=== PATIENT | female | born 1955 | race Caucasian/White ===

== ENCOUNTER → 2017-05-28 | Outpatient (CLI) | payer BC ==
[~2017-05-28] MED LIST: LORA-741 PO; METO25TA56 PO
--- NOTE | 2017-05-28 16:02 | MAMMOGRAPHY REPORT ---
BILATERAL DIGITAL SCREENING MAMMOGRAM TOMOSYNTHESIS WITH CAD: 05/28/2017 CLINICAL HISTORY: Routine screening. Patient has no complaints. TECHNIQUE: Breast tomosynthesis in addition to standard 2D mammography was performed. Current study was also evaluated with a Computer Aided Detection (CAD) system. COMPARISON: Comparison is made to exams dated: 12/01/2014 mammogram, 12/01/2014 ultrasound - [facility], and 10/09/2009 mammogram. BREAST COMPOSITION: The tissue of both breasts is heterogeneously dense, which may obscure small mas ses. FINDINGS: No suspicious masses, calcifications, or areas of architectural distortion are noted in ei ther breast. There has been no significant interval change compared to prior exams. Scattered bilater al benign-appearing calcifications are not significantly changed. Benign oil cysts are again seen wi thin the left medial breast. IMPRESSION: ACR BI-RADS CATEGORY 2: BENIGN There is no mammographic evidence of malignancy. A 1 year screening mammogram is recommended. The pa tient will receive written notification of the results. Approximately 10% of breast cancers are not detected with mammography. A negative mammographic report should not delay biopsy if a clinically suggestive mass is present. Susan Ledesma M.D. /:05/28/2017 12:47:41 Sales Administration Specialist: Madiha Carcamo [facility] letter sent: Normal 1/2 BI-RADS Code: ACR BI-RADS Category 2: Benign
== END | disposition home or self-care (01) ==
LOC: C.MAMM 12:25
PROVIDERS: ATTEND Nurse Practitioner Family
DX: Z12.31 Encounter for screening mammogram for malignant neoplasm of breast (principal)

== ENCOUNTER → 2017-09-24 | Outpatient (CLI) | payer OTHER ==
--- NOTE | 2017-09-24 14:08 | DIAGNOSTIC IMAGING REPORT ---
KUB HISTORY: DORSALGIA, HEMATURIA COMPARISON: None. FINDINGS: The bowel gas pattern is unremarkable. There are no dilated loops of small bowel to suggest an obstruction. The renal shadows are not well visualized due to overlying bowel gas. No left renal calculi. Possible 4 mm stone within the lower pole of the left kidney. However, this could be within the overlying bowel contents. No ureteral calculi. Calcifications in the deep pelvis likely represent phleboliths. Similar-appearing small rectangular densities overlying the right side of the sacrum and within the left side of the pelvis favor tubal ligation clips. No pneumoperitoneum or pneumatosis. IMPRESSION: Possible right-sided nephrolithiasis. No ureteral calculi. Electronically signed by: Woo Romero M.D. 09/24/2017 2:07 PM Dictated Date/Time: 09/24/2017 2:04 PM
== END | disposition home or self-care (01) ==
LOC: C.RAD 13:43
PROVIDERS: ATTEND Nurse Practitioner Family
DX: M54.9 Dorsalgia, unspecified (principal); R31.9 Hematuria, unspecified

== ENCOUNTER → 2017-09-25 | Outpatient (CLI) | payer OTHER ==
--- NOTE | 2017-09-25 16:45 | DIAGNOSTIC IMAGING REPORT ---
RENAL ULTRASOUND CLINICAL HISTORY: HEMATURIA, POSSIBLE STONE SEEN ON KUB COMPARISON STUDY: KUB September 24, 2017. TECHNIQUE: Sonography of the kidneys and the urinary bladder was performed. FINDINGS: Both kidneys measure 9.3 cm in maximal dimension. No shadowing calculi or renal masses are identified. There is no right hydronephrosis. Slight prominence of the right renal pelvis suggests an extrarenal pelvis. There is mild left collecting system dilatation. Both ureteral jets were identified. Bladder is unremarkable by sonography. IMPRESSION: 1. Mild left collecting system dilatation. 2. No renal calculi identified although these may be occult by sonography. 3. Both ureteral jets identified. Electronically signed by: Abhi Almazan M.D. 09/25/2017 4:44 PM Dictated Date/Time: 09/25/2017 4:42 PM
== END | disposition home or self-care (01) ==
LOC: C.ULTR 15:49
PROVIDERS: ATTEND Nurse Practitioner Family
DX: R31.9 Hematuria, unspecified (principal); M54.9 Dorsalgia, unspecified